=== PATIENT | female | born 1955 | race Caucasian/White ===

== ENCOUNTER 2017-07-07 07:24 | Day surgery (SDC) | payer BC ==
[~2017-07-07 07:24] MED LIST: Midazolam 1 MG/ML 2 ML SDV ONE; Propofol 200 MG/20 ML SDV ONE; fentaNYL 100 MCG/2 ML SDV ONE
[2017-07-07] MEDS ORDERED: Lactated Ringers 1,000 ML IV SCH (08:00)
--- NOTE | 2017-07-07 13:29 | OR ---
DATE OF PROCEDURE: 07/07/2017 PROCEDURE: Colonoscopy. FINDINGS: Small prominence of cecal valve, most likely consistent with prominent valve or lipoma (biopsied using cold biopsy forceps). COMPLICATIONS: None. ASSISTANTS: None. ANESTHESIA: MAC. PREOPERATIVE DIAGNOSIS: Screening colonoscopy. POSTOPERATIVE DIAGNOSIS: Screening colonoscopy. RISKS: Risks, benefits, alternatives, and limitations including, but not limited to infection, bleeding, and perforation were explained to the patient, who wished to proceed. PROCEDURE IN DETAIL: The patient was placed in left lateral decubitus position. Digital rectal exam was performed without abnormality. The scope was introduced and advanced atraumatically to the ileocecal valve. In approximation of the ileocecal valve, there was a prominence of this. This is most likely normal variation of anatomy versus lipoma. Nonetheless, this was biopsied multiple times using cold biopsy forceps. The remainder of the colon was inspected. No abnormalities. No masses. No polyps. No old or new blood. No diverticulosis. No abnormalities on retroflex, except the patient was noted to have small external hemorrhoids. The patient tolerated the procedure well. Lobo Champagne MD /[id number]
== END 2017-07-07 10:46 | disposition home or self-care (01) ==
LOC: JP.SDS 07:24
PROVIDERS: ATTEND Surgery
DX: Z12.11 Encounter for screening for malignant neoplasm of colon (principal); D17.5 Benign lipomatous neoplasm of intra-abdominal organs; I10 Essential (primary) hypertension; Z88.1 Allergy status to other antibiotic agents; Z88.2 Allergy status to sulfonamides
CPT/HCPCS: 45380; 88305; J2250; J2704; J3010; J7120